=== PATIENT | female | born 1950 | race Asian ===

== ENCOUNTER 2020-06-25 10:21 | Inpatient (IN) | payer MEDICARE, MEDICAID ==
[~2020-06-25] VITALS: Ht 154.9 cm; Wt 61.0 kg
[2020-06-25] MEDS ORDERED: MAGN500C16 PO (10:44)
[2020-06-25] MEDS ORDERED: DOCU100T9 PO (10:44)
[2020-06-25] MEDS ORDERED: QUET25TA34 PO (10:44)
[2020-06-25] MEDS ORDERED: PANT40TA51 PO (10:44)
[2020-06-25] MEDS ORDERED: UBID300C PO (10:44)
[2020-06-25] MEDS ORDERED: BUPR150T9 PO (10:44)
[2020-06-25] MEDS ORDERED: METF-874 PO (10:44)
[2020-06-25] MEDS ORDERED: SODI100047 GT (10:44)
[2020-06-25] MEDS ORDERED: OMEG1CAP46 PO (10:44)
[2020-06-25] MEDS ORDERED: LANTUS U (10:44)
[2020-06-25] MEDS ORDERED: WARF-67 PO (10:44)
[2020-06-25] MEDS ORDERED: vitamin d3 (10:44)
[2020-06-25] MEDS ORDERED: SAFI100T PO (10:44)
[2020-06-25] MEDS ORDERED: TEMA7.5C6 PO (10:44)
[2020-06-25] MEDS ORDERED: ATOR40TA70 PO (10:44)
[2020-06-25] MEDS ORDERED: BENA5TAB6 PO (10:44)
[2020-06-25] MEDS ORDERED: CARB1TAB15 PO (10:44)
[2020-06-25] MEDS ORDERED: CARB-33 PO (10:44)
[2020-06-25 11:16] LABS: CLARITY URINE CLEAR (CLEAR); COLOR URINE YELLOW (YELLOW); KETONES URINE NEGATIVE (NEGATIVE); LEUKOCYTE ESTERASE URINE NEGATIVE (NEGATIVE); NITRITE URINE NEGATIVE (NEGATIVE); OCCULT BLOOD URINE NEGATIVE (NEGATIVE); PH URINE 5.5 (4.5-8.0); PROTEIN URINE NEGATIVE (NEGATIVE); SPECIFIC GRAVITY URINE 1.014 (1.005-1.030); UROBILINOGEN URINE 0.2 E.U./dL (0.2-1.0)
[2020-06-25] MEDS ORDERED: ONDANSETRON HCL 4MG/2ML INJ IV PRN (11:45)
[2020-06-25] MEDS ORDERED: MORPHINE SULFATE 2 MG/ML CPJ (NOT FOR IM USE) IV PRN (11:45)
[2020-06-25] MEDS: SODIUM CHLORIDE 0.45% 1,000 ML IV SCH (11:45)
[2020-06-25] MEDS ORDERED: CLONIDINE 0.1MG TABLET PO PRN (11:45)
[2020-06-25 11:53] LABS: BASOPHILS % 0.5 % (0.0-2.0); EOSINOPHILS % 1.8 % (0.0-5.0); HEMATOCRIT. 32.3 % (36.0-48.0); HEMOGLOBIN. 10.8 g/dL (12.0-16.0); LYMPHOCYTES % 19.4 % (20.0-50.0); MEAN CORPUSCULAR HEMOGLOBIN 28.8 pg (28.0-32.0); MEAN CORPUSCULAR VOLUME 86.4 fL (81.0-99.0); MEAN PLATELET VOLUME 6.3 fl (7.4-10.4); MONOCYTES % 7.8 % (2.0-8.0); NEUTROPHILS % 70.5 % (40.0-76.0); PLATELET 321 x1000/uL (130-400); RED BLOOD CELL COUNT 3.74 mill/uL (4.2-5.4); RED CELL DISTRIBUTION WIDTH 16.8 % (11.6-14.6)
[2020-06-25 11:58] LABS: CHLORIDE 104 mEq/L (98-107)
[2020-06-25] MEDS ORDERED: LEVOFLOXACIN 500MG PREMIX 100 ML IV SCH (13:30)
[2020-06-25] MEDS: CARBIDOPA/LEVODOPA 25/250MG TABLET PO SCH ×2 (14:00→17:32)
[2020-06-25 15:42] LABS: INR 3.5; PROTHROMBIN TIME 33.9 sec (9.6-11.0)
[2020-06-25] MEDS: METFORMIN HCL 500MG TABLET PO SCH (17:33)
[2020-06-25] MEDS ORDERED: WARFARIN SODIUM 2MG TABLET PO SCH (18:00)
[2020-06-25] MEDS: PANTOPRAZOLE 40MG DR TABLET PO SCH (21:00)
[2020-06-25] MEDS: BUPROPION HCL 150MG SR TABLET PO SCH (21:00)
[2020-06-25] MEDS: ATORVASTATIN CALCIUM 40MG TABLET PO SCH (21:00)
[2020-06-25] MEDS ORDERED: TEMAZEPAM 15MG CAPSULE PO PRN (21:00)
[2020-06-25] MEDS: QUETIAPINE FUMARATE 25MG TABLET PO SCH (21:18)
[2020-06-25 21:36] LABS: T4 FREE 0.88 ng/dL (0.76-1.46)
[2020-06-25 22:07] LABS: VITAMIN B12 SERUM 308 pg/mL (211-911)
[2020-06-25 22:10] LABS: FOLIC ACID (FOLATE) SERUM > 20.00 ng/mL (>5.38)
[2020-06-25 23:58] VITALS: BP 133/63
[2020-06-26] MEDS: CARBIDOPA/LEVODOPA 25/250MG TABLET PO SCH ×7 (00:22→21:21)
[2020-06-26 00:30] VITALS: BP 133/63
[2020-06-26] MEDS ORDERED: *PATIENT'S OWN MEDICATION STORAGE XX SCH (02:15)
[2020-06-26] MEDS ORDERED: DEXTROSE 50% WATER 50ML SYRINGE IV PRN (03:15)
[2020-06-26] MEDS: SODIUM CHLORIDE 0.45% 1,000 ML IV SCH ×2 (03:44→21:23)
[2020-06-26 04:00] VITALS: BP 140/65
[2020-06-26] MEDS: BLOOD SUGAR DIAGNOSTIC STRIP TEST SCH ×4 (06:07→21:21)
[2020-06-26] MEDS: INSULIN LISPRO 100 UNITS/ML SUBCUT SCH ×4 (06:14→21:00)
[2020-06-26] MEDS: METFORMIN HCL 500MG TABLET PO SCH ×2 (06:15→18:21)
[2020-06-26] MEDS: PANTOPRAZOLE 40MG DR TABLET PO SCH ×2 (06:15→21:20)
[2020-06-26 07:06] LABS: BASOPHILS % 0.4 % (0.0-2.0); EOSINOPHILS % 1.4 % (0.0-5.0); HEMATOCRIT. 33.9 % (36.0-48.0); HEMOGLOBIN. 11.4 g/dL (12.0-16.0); LYMPHOCYTES % 17.5 % (20.0-50.0); MEAN CORPUSCULAR HEMOGLOBIN 28.7 pg (28.0-32.0); MEAN PLATELET VOLUME 6.6 fl (7.4-10.4); MONOCYTES % 10.4 % (2.0-8.0); NEUTROPHILS % 70.3 % (40.0-76.0); PLATELET 337 x1000/uL (130-400); RED BLOOD CELL COUNT 3.99 mill/uL (4.2-5.4); RED CELL DISTRIBUTION WIDTH 16.7 % (11.6-14.6)
[2020-06-26 07:08] LABS: CHLORIDE 103 mEq/L (98-107)
[2020-06-26 07:20] LABS: HDL CHOLESTEROL 80 mg/dL (40-59)
[2020-06-26 07:21] LABS: LDL CHOLESTEROL 54 mg/dL (5-100)
[2020-06-26 07:26] LABS: INR 2.5; PROTHROMBIN TIME 25.1 sec (9.6-11.0)
[2020-06-26 08:00] VITALS: BP 153/73
[2020-06-26] MEDS: MAGNESIUM OXIDE 400MG TABLET PO SCH (09:42)
[2020-06-26] MEDS: BENAZEPRIL 5MG TABLET PO SCH (09:42)
[2020-06-26] MEDS: BUPROPION HCL 150MG SR TABLET PO SCH ×2 (10:34→21:21)
[2020-06-26] MEDS ORDERED: LEVOFLOXACIN 250MG PREMIX 50 ML IV SCH (11:00)
[2020-06-26 12:00] VITALS: BP 101/53
[2020-06-26] MEDS: DILTIAZEM HCL 30MG TABLET PO SCH ×2 (12:00→18:21)
[2020-06-26 16:00] VITALS: BP 173/71
[2020-06-26] MEDS: LORAZEPAM 2MG/ML CPJ IV PRN (18:21)
[2020-06-26 20:00] VITALS: BP 106/46
[2020-06-26] MEDS: QUETIAPINE FUMARATE 25MG TABLET PO SCH (21:20)
[2020-06-26] MEDS: ATORVASTATIN CALCIUM 40MG TABLET PO SCH (21:21)
[2020-06-27] VITALS: BP 104/58
[2020-06-27] MEDS ORDERED: ENTACAPONE 200MG TABLET PO SCH ×2
[2020-06-27] MEDS: CARBIDOPA/LEVODOPA 25/250MG TABLET PO SCH ×3 (02:00→10:47)
[2020-06-27 04:00] VITALS: BP 139/58
[2020-06-27] MEDS: BLOOD SUGAR DIAGNOSTIC STRIP TEST SCH ×4 (06:35→21:30)
[2020-06-27] MEDS: DILTIAZEM HCL 30MG TABLET PO SCH ×4 (06:43→17:54)
[2020-06-27] MEDS: PANTOPRAZOLE 40MG DR TABLET PO SCH ×2 (06:43→21:32)
[2020-06-27] MEDS: INSULIN LISPRO 100 UNITS/ML SUBCUT SCH ×4 (06:45→21:00)
[2020-06-27 08:00] VITALS: BP_SYST 110; BP_SYST 88; BP_DIAS 48; BP_DIAS 68
[2020-06-27] MEDS: PHYTONADIONE 10MG/ML AMP SUBCUT SCH (08:42)
[2020-06-27] MEDS: MAGNESIUM OXIDE 400MG TABLET PO SCH (08:43)
[2020-06-27] MEDS: METFORMIN HCL 500MG TABLET PO SCH ×2 (08:43→17:53)
[2020-06-27] MEDS: BENAZEPRIL 5MG TABLET PO SCH ×2 (08:43→08:49)
[2020-06-27] MEDS: BUPROPION HCL 150MG SR TABLET PO SCH ×2 (08:44→21:29)
[2020-06-27] MEDS: LEVOFLOXACIN 250MG TABLET PO SCH (10:47)
[2020-06-27] MEDS ORDERED: NON FORMULARY PATIENT HOME MED PO SCH (11:30)
[2020-06-27 11:46] VITALS: BP 124/80
[2020-06-27] MEDS: DEXAMETHASONE 4MG/ML 1ML VIAL IV SCH ×3 (12:08→23:09)
[2020-06-27] MEDS: SODIUM CHLORIDE 0.45% 1,000 ML IV SCH (15:04)
[2020-06-27 16:00] VITALS: BP 116/56
[2020-06-27] MEDS ORDERED: CARBIDOPA/LEVODOPA 25/250MG TABLET PO SCH ×2 (17:00→20:00)
[2020-06-27 20:00] VITALS: BP 127/57
[2020-06-27] MEDS ORDERED: XADAGO PO SCH (20:00)
[2020-06-27] MEDS: QUETIAPINE FUMARATE 25MG TABLET PO SCH (21:29)
[2020-06-27] MEDS: ATORVASTATIN CALCIUM 40MG TABLET PO SCH (21:30)
[2020-06-27] MEDS ORDERED: STALEVO PO SCH (23:00)
[2020-06-28] VITALS: BP 119/52
[2020-06-28] MEDS ORDERED: STALEVO PO SCH ×2 (02:00→05:00)
[2020-06-28] MEDS: LORAZEPAM 2MG/ML CPJ IV PRN (03:08)
[2020-06-28 04:00] VITALS: BP 124/53
[2020-06-28] MEDS: DILTIAZEM HCL 30MG TABLET PO SCH ×3 (05:42→12:00)
[2020-06-28] MEDS: DEXAMETHASONE 4MG/ML 1ML VIAL IV SCH ×2 (05:42→12:17)
[2020-06-28] MEDS: SODIUM CHLORIDE 0.45% 1,000 ML IV SCH (05:42)
[2020-06-28] MEDS: PANTOPRAZOLE 40MG DR TABLET PO SCH (05:45)
[2020-06-28] MEDS: BLOOD SUGAR DIAGNOSTIC STRIP TEST SCH ×2 (06:50→12:17)
[2020-06-28] MEDS: INSULIN LISPRO 100 UNITS/ML SUBCUT SCH ×2 (06:52→12:42)
[2020-06-28 07:08] LABS: CHLORIDE 97 mEq/L (98-107)
[2020-06-28 07:17] LABS: HEMATOCRIT. 38.6 % (36.0-48.0); HEMOGLOBIN. 12.7 g/dL (12.0-16.0); MEAN CORPUSCULAR HEMOGLOBIN 28.5 pg (28.0-32.0); MEAN CORPUSCULAR VOLUME 86.9 fL (81.0-99.0); MEAN PLATELET VOLUME 6.8 fl (7.4-10.4); PLATELET 413 x1000/uL (130-400); RED BLOOD CELL COUNT 4.45 mill/uL (4.2-5.4); RED CELL DISTRIBUTION WIDTH 16.3 % (11.6-14.6)
[2020-06-28 07:17] LABS: INR 1.1; PROTHROMBIN TIME 11.9 sec (9.6-11.0)
[2020-06-28 08:00] VITALS: BP 98/52
[2020-06-28] MEDS ORDERED: CARBIDOPA/LEVODOPA 25/250MG TABLET PO SCH ×3 (08:00→14:00)
[2020-06-28] MEDS: MAGNESIUM OXIDE 400MG TABLET PO SCH (08:27)
[2020-06-28] MEDS: BUPROPION HCL 150MG SR TABLET PO SCH (08:27)
[2020-06-28] MEDS: METFORMIN HCL 500MG TABLET PO SCH (08:27)
[2020-06-28] MEDS: PHYTONADIONE 10MG/ML AMP SUBCUT SCH (08:27)
[2020-06-28] MEDS: BENAZEPRIL 5MG TABLET PO SCH (08:28)
[2020-06-28] MEDS: LEVOFLOXACIN 250MG TABLET PO SCH (11:11)
[2020-06-28 12:00] VITALS: BP 92/58
[2020-06-28 12:23] VITALS: BP 98/57
[2020-06-28 14:12] LABS: PLATELET ESTIMATE INCREASED
== END 2020-06-28 13:23 | DRG 91 ==
LOC: ER 10:39 → SUPCPDRO 11:27 → 5WST 13:41 → EDBEDREQSVC 21:40 → EDBEDREQTM 21:40 → EDBEDREQSVC 22:36 → EDBEDREQTM 22:36 → ENRESERV 22:55
PROVIDERS: ADMIT Internal Medicine Nephrology; ATTEND Internal Medicine Nephrology
DX: G92 Toxic encephalopathy (principal); G82.50 Quadriplegia, unspecified; E87.1 Hypo-osmolality and hyponatremia; G95.20 Unspecified cord compression; I47.1 Supraventricular tachycardia; D64.9 Anemia, unspecified; E11.9 Type 2 diabetes mellitus without complications; E78.00 Pure hypercholesterolemia, unspecified; E78.5 Hyperlipidemia, unspecified; E86.9 Volume depletion, unspecified; F32.9 Major depressive disorder, single episode, unspecified; G20 Parkinson's disease; I10 Essential (primary) hypertension; L50.9 Urticaria, unspecified; M48.02 Spinal stenosis, cervical region; M48.061 Spinal stenosis, lumbar region without neurogenic claudication; K21.9 Gastro-esophageal reflux disease without esophagitis; R26.2 Difficulty in walking, not elsewhere classified; R47.1 Dysarthria and anarthria; M51.26 Other intervertebral disc displacement, lumbar region; Z79.01 Long term (current) use of anticoagulants; Z79.4 Long term (current) use of insulin; Z82.3 Family history of stroke; Z82.49 Family history of ischemic heart disease and other diseases of the circulatory system; Z85.038 Personal history of other malignant neoplasm of large intestine; Z87.440 Personal history of urinary (tract) infections; Z85.3 Personal history of malignant neoplasm of breast; Z88.0 Allergy status to penicillin; Z90.13 Acquired absence of bilateral breasts and nipples; Z90.49 Acquired absence of other specified parts of digestive tract; Z79.899 Other long term (current) drug therapy
CPT/HCPCS: 36415; 70551; 72141; 72148; 80048; 80053; 80061; 80307; 80329; 81003; 82607; 82746; 82962; 83036; 83735; 84439; 84443; 84481; 84484; 85025; 86850; 86900; 93005; 93306; 93970; 97116; 97162; 97166; 97530; 99285; J1100; J1815; J1956; J2060; J3430; A4315

== ENCOUNTER 2020-07-15 13:24 | Emergency (ER) | payer MEDICARE, MEDICAID ==
[~2020-07-15] VITALS: Ht 160 cm; Wt 61.5 kg
[~2020-07-15 13:24] MED LIST: ATOR40TA70 PO; BENA5TAB6 PO; BUPR150T9 PO; CARB-33 PO; CARB1TAB15 PO; DOCU100T9 PO; LANTUS U; MAGN500C16 PO; METF-874 PO; OMEG1CAP46 PO; PANT40TA51 PO; QUET25TA34 PO; SAFI100T PO; SODI100047 GT; TEMA7.5C6 PO; UBID300C PO; WARF-67 PO; vitamin d3
[2020-07-15] MEDS ORDERED: ACETAMINOPHEN 325MG TABLET PO STA (13:59)
[2020-07-15 14:25] LABS: BASOPHILS % 0.8 % (0.0-2.0); EOSINOPHILS % 1.9 % (0.0-5.0); HEMATOCRIT. 31.5 % (36.0-48.0); HEMOGLOBIN. 10.6 g/dL (12.0-16.0); LYMPHOCYTES % 18.6 % (20.0-50.0); MEAN CORPUSCULAR HEMOGLOBIN 28.7 pg (28.0-32.0); MEAN CORPUSCULAR VOLUME 85.7 fL (81.0-99.0); MEAN PLATELET VOLUME 6.4 fl (7.4-10.4); MONOCYTES % 5.3 % (2.0-8.0); NEUTROPHILS % 73.4 % (40.0-76.0); PLATELET 326 x1000/uL (130-400); RED BLOOD CELL COUNT 3.68 mill/uL (4.2-5.4); RED CELL DISTRIBUTION WIDTH 15.6 % (11.6-14.6)
[2020-07-15 14:33] LABS: CHLORIDE 109 mEq/L (98-107)
[2020-07-15 15:27] LABS: CREATINE KINASE 44 IU/L (26-192)
[2020-07-15 16:40] LABS: CLARITY URINE CLEAR (CLEAR); COLOR URINE DARK YELLOW (YELLOW); KETONES URINE 1+ (NEGATIVE); LEUKOCYTE ESTERASE URINE NEGATIVE (NEGATIVE); NITRITE URINE NEGATIVE (NEGATIVE); OCCULT BLOOD URINE NEGATIVE (NEGATIVE); PROTEIN URINE NEGATIVE (NEGATIVE); SPECIFIC GRAVITY URINE 1.032 (1.005-1.030); UROBILINOGEN URINE 0.2 E.U./dL (0.2-1.0)
[2020-07-15 20:05] VITALS: BP 144/73
== END 2020-07-15 20:07 ==
LOC: ER 13:24
DX: R26.9 Unspecified abnormalities of gait and mobility (principal); R51.9 Headache, unspecified; G20 Parkinson's disease; F02.80 Dementia in other diseases classified elsewhere, unspecified severity, without behavioral disturbance, psychotic disturbance, mood disturbance, and anxiety; I10 Essential (primary) hypertension; E11.9 Type 2 diabetes mellitus without complications; F32.9 Major depressive disorder, single episode, unspecified; Z86.73 Personal history of transient ischemic attack (TIA), and cerebral infarction without residual deficits; Z90.10 Acquired absence of unspecified breast and nipple; Z88.0 Allergy status to penicillin; W01.0XXA Fall on same level from slipping, tripping and stumbling without subsequent striking against object, initial encounter; Y93.89 Activity, other specified; Y92.128 Other place in nursing home as the place of occurrence of the external cause
CPT/HCPCS: 36415; 71045; 80053; 81003; 82550; 84484; 85025; 93005; 99285

== ENCOUNTER 2020-08-10 13:09 | Emergency (ER) | payer MEDICARE, MEDICAID ==
[~2020-08-10] VITALS: Ht 160 cm; Wt 61.0 kg
[~2020-08-10 13:09] MED LIST changes: +CLON-457 PO; +DILT30TA38 MT; +LORA2TAB95 MT; +ONDA4TAB11 PO; -SODI100047 GT; -WARF-67 PO
[2020-08-10] MEDS ORDERED: SODIUM CHLORIDE 0.9% 1,000 ML IV ONE (14:00)
[2020-08-10] MEDS ORDERED: BACITRACIN ZINC OINT UDPKT TOP ONE (14:00)
[2020-08-10] MEDS ORDERED: TETANUS, DIPHTHERIA, PERTUSSIS VAC/PF 0.5ML (>7YR OLD) IM ONE (14:00)
[2020-08-10] MEDS ORDERED: LIDOCAINE HCL/PF 1% 10 MG/ML 5ML VIAL IJ ONE (14:00)
[2020-08-10 14:33] LABS: CHLORIDE 104 mEq/L (98-107)
[2020-08-10 14:36] LABS: BASOPHILS % 0.6 % (0.0-2.0); EOSINOPHILS % 1.1 % (0.0-5.0); HEMATOCRIT. 33.3 % (36.0-48.0); HEMOGLOBIN. 11.3 g/dL (12.0-16.0); LYMPHOCYTES % 16.2 % (20.0-50.0); MEAN CORPUSCULAR HEMOGLOBIN 29.8 pg (28.0-32.0); MEAN CORPUSCULAR VOLUME 87.6 fL (81.0-99.0); MEAN PLATELET VOLUME 7.9 fl (7.4-10.4); MONOCYTES % 7.9 % (2.0-8.0); NEUTROPHILS % 74.2 % (40.0-76.0); PLATELET 323 x1000/uL (130-400); RED BLOOD CELL COUNT 3.81 mill/uL (4.2-5.4); RED CELL DISTRIBUTION WIDTH 16.3 % (11.6-14.6)
[2020-08-10 14:39] LABS: PROTHROMBIN TIME 10.8 sec (9.6-11.0)
[2020-08-10 14:54] LABS: CLARITY URINE CLEAR (CLEAR); COLOR URINE YELLOW (YELLOW); KETONES URINE NEGATIVE (NEGATIVE); LEUKOCYTE ESTERASE URINE 1+ (NEGATIVE); NITRITE URINE NEGATIVE (NEGATIVE); OCCULT BLOOD URINE NEGATIVE (NEGATIVE); PH URINE 5.5 (4.5-8.0); PROTEIN URINE NEGATIVE (NEGATIVE); SPECIFIC GRAVITY URINE 1.017 (1.005-1.030); UROBILINOGEN URINE 0.2 E.U./dL (0.2-1.0)
[2020-08-10] MEDS ORDERED: CEFTRIAXONE 1 G PREMIX 50 ML IV ONE (15:45)
[2020-08-10] MEDS ORDERED: CEPH500C2 MT (17:16)
[2020-08-10] MEDS ORDERED: LORAZEPAM 2MG/ML CPJ IV ONE (17:30)
[2020-08-10 20:01] VITALS: BP 158/50
== END 2020-08-10 20:05 | disposition home or self-care (01) ==
LOC: ER 13:09 → CANBEDREQ 18:30 → ER 20:05
DX: S01.112A Laceration without foreign body of left eyelid and periocular area, initial encounter (principal); N39.0 Urinary tract infection, site not specified; I10 Essential (primary) hypertension; G20 Parkinson's disease; F32.9 Major depressive disorder, single episode, unspecified; E11.65 Type 2 diabetes mellitus with hyperglycemia; Z91.81 History of falling; Z86.73 Personal history of transient ischemic attack (TIA), and cerebral infarction without residual deficits; Z90.10 Acquired absence of unspecified breast and nipple; Z79.84 Long term (current) use of oral hypoglycemic drugs; Z88.0 Allergy status to penicillin; W01.0XXA Fall on same level from slipping, tripping and stumbling without subsequent striking against object, initial encounter; Y93.89 Activity, other specified; Y92.128 Other place in nursing home as the place of occurrence of the external cause
CPT/HCPCS: 12013; 36415; 70450; 71045; 73560; 80053; 81003; 84484; 85025; 85610; 87086; 87186; 90471; 90715; 93005; 96361; 96374; 96375; 99285; J0696; J2060; J3490; J7030